=== PATIENT | female | born 1990 | race Caucasian/White ===

== ENCOUNTER 2017-03-08 04:34 | Emergency (ER) | payer OTHER ==
[~2017-03-08] VITALS: Ht 152.4 cm; Wt 55.7 kg
[~2017-03-08 04:34] MED LIST: BCPILLS PO
[2017-03-08 04:37] VITALS: BP 123/85; PULSE 83; TEMP 36.4; Ht 152.4 cm; Wt 55.7 kg
[2017-03-08 04:42] VITALS: O2SAT 99
--- NOTE | 2017-03-08 04:48 | EMERGENCY ROOM VISIT NOTE ---
History Report prepared by Dorota: Dinorah Chen Under the Supervision of: Dr. Avery Seaman M.D. First contact with patient: 04:40 Chief Complaint: THROAT PAIN/INJURY Stated Complaint: THROAT PAIN, COUGH History of Present Illness The patient is a 26 year old female who presents to the Emergency Room with complaints of a persistent, worsening sore throat that began three days ago. She currently rates her discomfort as a 5/10 in severity. The patient states that both her daughter and were recently sick. She states that her sore throat began and today she noticed white patches in the back of her throat. The patient notes increased pain with swallowing. The patient additionally associates a dry cough with her symptoms. She denies any fever, urinary symptoms, abdominal pain, or diarrhea. Source of History: patient Onset: three days ago Position: throat Symptom Intensity: 5/10 Quality: other (sore) Timing: worsening, other (persistent) Modifying Factors (Worsening): other (swallowing ) Associated Symptoms: No abdominal pain, No diarrhea, No fevers, No urinary symptoms Review of Systems See HPI for pertinent positives & negatives. A total of 10 systems reviewed and were otherwise negative. Past Medical & Surgical No active medical problems. Family History No pertinent family history stated. Social History Smoking Status: Never Smoker Marital Status: Housing Status: lives with family Occupation Status: employed Current/Historical Medications Scheduled Amoxicillin (Amoxil), 500 MG PO TID Benzonatate (Tessalon Perles), 1-2 CAP PO Q4 Prednisone (Prednisone), 2 TAB PO DAILY Allergies Coded Allergies: No Known Allergies (Unverified , 03/08/17) Physical Exam Vital Signs Date Time Temp Pulse Resp B/P Pulse Ox O2 Delivery O2 Flow Rate FiO2 03/08/17 04:42 99 Room Air 03/08/17 04:38 99 Room Air 03/08/17 04:37 36.4 83 16 123/85 99 Room Air Physical Exam GENERAL: Patient is well appearing and in no acute distress. HEENT: Bilateral erythematous tonsils, minimally enlarged, white exudate bilaterally. No acute trauma, normocephalic atraumatic, mucous membranes moist , no nasal congestion, no scleral icterus. NECK: No stridor, mild anterior adenopathy, no meningismus, trachea is midline. LUNGS: No dyspnea. Clear to auscultation and equal bilaterally. No wheeze, no rhonchi. HEART: Regular rate and rhythm. No murmurs, rubs, gallops appreciated. EXTREMITIES: Normal motion all extremities, no cyanosis, no edema. NEUROLOGIC: Alert and oriented, no acute motor or sensory deficits, no focal weakness, cranial nerves grossly intact. SKIN: No rash, no jaundice, no diaphoresis. Medical Decision & Procedures Medications Administered Medications (Trade) Dose Ordered Sig/Juanita Route Start Time Stop Time Status Last Admin Dose Admin Benzonatate (Tessalon Perles Cap) 100 mg NOW STAT PO 03/08/17 04:54 03/08/17 04:57 DC 03/08/17 05:11 100 MG Benzonatate (Tessalon Perles Cap) 200 mg NOW STAT PO 03/08/17 04:54 03/08/17 04:57 DC 03/08/17 05:15 200 MG Amoxicillin (Amoxil 250MG Home Pack) 1 homepack UD ONCE PO 03/08/17 05:00 03/08/17 05:01 DC 03/08/17 05:15 1 HOMEPACK Amoxicillin (Amoxil Cap) 500 mg NOW STAT PO 03/08/17 04:54 03/08/17 04:57 DC 03/08/17 05:12 500 MG Prednisone (PredniSONE TAB) 60 mg NOW STAT PO 03/08/17 04:54 03/08/17 04:57 DC 03/08/17 05:11 60 MG Amoxicillin (Amoxil 250MG Home Pack) 1 homepack UD ONCE PO 03/08/17 05:15 03/08/17 05:16 DC 03/08/17 05:15 1 HOMEPACK ED Course 0440: The patient was evaluated in room B3B. A complete history and physical exam was performed. 0449: I reevaluated the patient and she is resting comfortably. I discussed the exam findings with her and I discussed the treatment plan. She verbalized complete understanding and agreement. She is ready for discharge. 0454: Ordered Prednisone 60 mg PO, Amoxicillin 500 mg PO, Benzonatate 200 mg PO , Benzonatate 100 mg PO. 0500: Ordered Amoxicillin 1 homepack PO. 0515: Ordered Amoxicillin 1 homepack PO. Medical Decision Differential: Viral, Tonsillitis, Strep, [place], Peritonsillar Abscess, Retropharyngeal Abscess, Otitis, Pneumonia, Influenza, amongst other pathologies entertained. 26 yr old female with sore throat that has developed in to exudative tonsillitis. No blisters appreciated and no evidence of abscess. Strep is negative. Family with similar sore throat though without exudative. She also has cough with this. Will start some steroids for symptom relief and as doing so will add on Amox, especially given this is holiday weekend and may be difficult to get in with provider/pharmacy. Did discuss likelihood of this being purely viral but she agrees with abx use. Patient denies concerns for mono. Impression Primary Impression: Acute tonsillitis Scribe Attestation The scribe's documentation has been prepared under my direction and personally reviewed by me in its entirety. I confirm that the note above accurately reflects all work, treatment, procedures, and medical decision making performed by me. Departure Information Dispostion Home / Self-Care Prescriptions Benzonatate (Tessalon Perles) 100 Mg Cap 1-2 CAP PO Q4 for 5 Days, #30 CAP Prov: Avery Seaman M.D. 03/08/17 Prednisone (Prednisone) 20 Mg Tab 2 TAB PO DAILY for 4 Days, #8 TAB Prov: Avery Seaman M.D. 03/08/17 Amoxicillin (AMOXIL) 500 Mg Tab 500 MG PO TID for 7 Days, #21 TAB Prov: Avery Seaman M.D. 03/08/17 Forms HOME CARE DOCUMENTATION FORM, IMPORTANT VISIT INFORMATION Patient Instructions ED Tonsillitis, [facility] Problem Qualifiers Primary Impression: Acute tonsillitis Pharyngitis/tonsillitis etiology: unspecified etiology Qualified Codes: J03.90 - Acute tonsillitis, unspecified
[2017-03-08] MEDS ORDERED: AMOXICILLIN 250 MG CAP PO STA (04:54)
[2017-03-08] MEDS ORDERED: BENZONATATE 100MG CAP PO STA ×2 (04:54)
[2017-03-08] MEDS ORDERED: BENZ100C84 PO (04:57)
[2017-03-08] MEDS ORDERED: AMOX500T3 PO (04:57)
[2017-03-08] MEDS ORDERED: PRED20TA PO (04:57)
[2017-03-08] MEDS ORDERED: AMOXICILLIN HOME PACK 250 MG/TAB PO ONE ×2 (05:00→05:15)
[2017-03-08] MEDS ORDERED: EMPTY 8 DRAM VIAL ONE (05:09)
== END 2017-03-08 05:17 | disposition home or self-care (01) ==
LOC: C.EDB 04:34
DX: J03.90 Acute tonsillitis, unspecified (principal)

== ENCOUNTER 2019-04-25 05:31 | Inpatient (IN) ==
--- NOTE | 2019-04-22 11:26 | Anesthesiology Consultation ---
Date of Service April 22, 2019 Assessment & Plan (1) Encounter for pre-operative examination: Family hx pseudocholinesterase deficiency: per patient, as a child she tested "negative" but unable to obtain those records Chart Review Chart Review: Acceptable Risk for Surgery (PENDING LABS AM DOS) and Patient seen in Pre Admission Testing Consults Requested none Teaching & Discussion Pre-Anesthesia Teaching/Discussion Notes: Instructed NPO after midnight before surgery,except medications with 15 cc of water. Medication instructions provided according to the PAT guidelines. ASA ASA2 Proposed Anesthesia Anesthesia Type: Spinal Risk / Benefits Reviewed With: PT / POA / Parent / Guardian, Accepts Plan and Informed Consent Obtained History Surgery Operation Date: 04/25/19 07:30 Proposed Procedures p Section in LD - Lyn Brandon MD, FACOG Height/Weight Height: 5 ft Weight: 64.8 kg Allergies Allergy/AdvReac Type Severity Reaction Status Date / Time No Known Allergies Allergy Unverified 04/15/19 08:48 Medications Home Medications Medication Instructions Recorded Confirmed Last Taken PNV cmb#95-ferrous fumarate-FA 1 tab PO HS 04/15/19 04/15/19 04/14/19 [] cetirizine [Zyrtec] 10 mg PO UD PRN 04/15/19 04/15/19 Unknown Active Medications Generic Name Dose Route Start Last Admin Trade Name Freq PRN Reason Stop Dose Admin Lactated Ringer's 1,000 mls @ 999 mls/hr 04/25/19 09:30 04/25/19 06:00 Lr IV 04/25/19 15:59 999 mls/hr .Q1H1M AZUCENA Administration Past Medical History Medical History Family history of pseudocholinesterase deficiency HX IN FATHER; PATIENT TESTED "NEGATIVE" CHILD (UNABLE TO OBTAIN RECORDS) History of blood transfusion 2013 2/2 HEMORRHAGE Exercise / Class Metabolic Activity II 4-5 Yardwork/Stairs/Walk up hill Past Surgical History Surgical History History of section 2013 C/S- FAILURE TO PROGRESS ([place]) History of wisdom tooth extraction Past Anesthesia History No Hx of Anesthesia Complications and Pseudocholinesterase Deficiency (HX IN FATHER; PATIENT TESTED "NEGATIVE" CHILD) History of PONV No Hx of PONV and Hx of Motion Sickness (REMOTE HX) Social History Smoking Status: Never smoker Do You Dip or Chew Tobacco: No Hx Alcohol Use: No Hx Substance Use: No substance use type: does not use Review of Systems Patient denies chest pain, shortness of breath, dyspnea on exertion, cough, whee zing, palpitations. Physical Exam Vital Signs Last Vital Signs Temp 36.8 C 04/25/19 05:39 Pulse 64 04/25/19 05:37 Resp 20 04/25/19 05:39 BP 126/78 04/25/19 05:37 VITALS BP 97/64 (per patient, typically low to normal BP with systolic in low 100's) P 72 TEMP 98.4 SP02 97%RA RESP 18 PHYSICAL Full neck and c-spine range of motion. Full TMJ range of motion. TMD 4 finger breaths Mallampati Score 1 Dentition: intact Lungs: clear throughout to auscultation Cardiac: regular rate and rhythm, no murmurs noted Spine: normal Carotid arteries: negative bruit Extremities: no edema ENMT Mouth: no dentition abnormality Thyromental Distance: > or= 3.5 Finger Breadths Mallampati Class: II Neck normal visual inspection Respiratory normal respiratory effort Auscultation: lungs clear to auscultation bilaterally Cardiovascular Rate/Rhythm: regular rate and regular rhythm Psychiatric Orientation: alert
--- NOTE | 2019-04-23 11:12 | History & Physical Report ---
Date of Service April 23, 2019 Assessment & Plan (1) Previous section complicating : IUP at 39 weeks with request for repeat section. the risks & the procedure were reviewed with the patient & her questions were answered to her satisfaction Please see the pre-op orders for further direction. History of Present Illness Primary Care Provider: NO PCP Patient is a 28 yo white female EDC 04/30/19 who presents for repeat at a39+ weeks. prior was done for FTP. this has been uncomplicated except for suspected SGA on 20 week anatomy scan but follow up growth scans showed normal growth for the rest of the . GBS (+) blood type O(+). Allergies Allergy/AdvReac Type Severity Reaction Status Date / Time No Known Allergies Allergy Unverified 04/15/19 08:48 Home Medications Home Medications Medication Instructions Recorded Confirmed Type PNV cmb#95-ferrous fumarate-FA 1 tab PO HS 04/15/19 04/15/19 History [] cetirizine [Zyrtec] 10 mg PO UD PRN 04/15/19 04/15/19 History Patient History Medical History Family history of pseudocholinesterase deficiency HX IN FATHER; PATIENT TESTED "NEGATIVE" CHILD (UNABLE TO OBTAIN RECORDS) History of blood transfusion 2013 12/ HEMORRHAGE Surgical History History of section 2013 C/S- FAILURE TO PROGRESS ([place]) History of wisdom tooth extraction Social History Preferred Language: Yi Communication Ability: Effective Real Estate Manager Required: No Beliefs That Will Affect Care: None Current Living Situation: Family Other Information That Helps Us Care for You: No Feels Safe at Home: Yes Smoking Status: Never smoker Do You Dip or Chew Tobacco: No Hx Alcohol Use: No Hx Substance Use: No Review of Systems All systems reviewed & are unremarkable except as noted in HPI & below Physical Exam Constitutional: WD/WN, vitals as above Respiratory: normal respiratory effort, lungs clear to auscultation Cardiovascular: RRR, no murmur, no edema Gastrointestinal (Abdomen): normal bowel sounds, soft, nontender, no hepatosplenomegaly Musculoskeletal: no cyanosis or clubbing, extremities motor strength 5/5 no calf tenderness Genitourinary: OB Exam Abdomen: + heart tones (150 bpm), + vertex and + estimated weight (6-7 pounds) pelvic exam deferred
--- OUTSIDE RECORDS SUMMARY | 2019-04-25 05:36 | External Medical Summary | Continuity of Care Document ---
:1990 Author Name Ligia Griffin, Provider Address Unavailable Unavailable , Care Team Providers Name Role Phone Aleksandr Griffin, Lyn Leonardo Unavailable Wenceslao [email or web address] Unavailable Unavailable Unavailable Unavailable Unavailable Problems Previous delivery affecting , antepartum ( 654.23) (O34.219) Encounter for supervision of normal preg diana in multigravida in third trimester (V22.1) (Z34.83) Encounter for counseling (V65.49) (Z39.1) GBS (group B streptococcus) UTI complicating (646. 60) (O23.40) Allergies and Adverse Reactions No Known Allergies (Allergy) Medications TABS Refills: 0 Procedures History of Section Status: Comp leted History of Oral Surgery Tooth Extraction Status: Completed Immunizations Tdap (Adacel) On: 10-Feb-2019 9:10 Lot #: [id number], [employer] PASTEUR Family History Father No pertinent family history (V49.89) (Z78.9) Status: Active Mother Family history of hypertension (V17.49) (Z82.49) Status: Act khushi Family history of thyroid disease (V18.19) (Z83.49) Status: Active Plan of Treatment Planned Encounters Appointment; Lyn Brandon M.D. Start: 14:30 Request Planned Observations Planned Goals not documented Results No Known Results Results not documented Vital Signs 22-Apr-2019 10:35 Systolic 138 mm[Hg] Diastolic 86 mm[Hg] Weight 142.5 lb Height 61 in BSA Calculated 1.64 m2 BMI Calculated 26.93 kg/m2 11-Apr-2019 8:31 Systolic 112 mm[Hg] Diastolic 74 mm[Hg] Weight 144.4 lb Height 61 in BSA Calculated 1.64 m2 BMI Calculated 27.28 kg/m2 Encounters Appointment; Lyn Brandon M.D. 22-Apr-2019 10:30 Encounter Diagnosis: Problem not documented Appointment; Madeline Prakash M.D. 11-Apr-2019 8:50 Encounter Diagnosis: Problem not documented Appointment; Fátima Krueger M.D. 22-Mar-2019 8:30 Encounter Diagnosis: Problem not documented Appointment; Lyn Brandon M.D. 08-Mar-2019 8:30 Encounter Diagnosis: Problem not documented Appointment; Lyn Brandon M.D. 22-Feb-2019 8:30 Encounter Diagnosis: Problem not documented Appointment; Fátima Krueger M.D. 10-Feb-2019 9:20 Encounter Diagnosis: Problem not documented Appointment; OBGYN SC1, Ultrasound 10-Feb-2019 8:30 Encounter Diagnosis: Problem not documented Appointment; Lyn Brandon M.D. 13-Jan-2019 16:00 Encounter Diagnosis: Problem not documented Appointment; OBGYN SC2, Ultrasound 13-Jan-2019 15:30 Encounter Diagnosis: Problem not documented Appointment; María Kang M.D. 14-Dec-2018 16:20 Encounter Diagnosis: Problem not documented Appointment; OBGYN SC1, Ultrasound 14-Dec-2018 15:30 Encounter Diagnosis: Problem not documented Appointment; Fátima Krueger M.D. 15-Nov-2018 8:20 Encounter Diagnosis: Problem not documented Appointment; Madeline Prakash M.D. 18-Oct-2018 8:30 Encounter Diagnosis: Problem not documented Appointment; OB SC1, Procedure Rm 21-Sep-2018 14:40 Encounter Diagnosis: Problem not documented Appointment; Fátima Krueger M.D. 21-Sep-2018 14:40 Encounter Diagnosis: Problem not documented Appointment; OB SC1, Nursing [facility] 15-Sep-2018 8:45 Encounter Diagnosis: Problem not documented Appointment; Lyn Brandon M.D. 07-Jun-2019 14:30 Encounter Diagnosis: Problem not documented
[2019-04-25] MEDS ORDERED: CITRIC ACID/SODIUM CITRATE 15 ML UDC PO SCH (06:00)
[2019-04-25] MEDS ORDERED: CEFAZOLIN 2,000 MG in SYRINGE 0 ML IV SCH (06:00)
[2019-04-25 06:06] LABS: Basophils # (auto) 0.03 K/uL (0-0.2); Basophils % (auto) 0.3 %; Eosinophils # (auto) 0.11 K/uL (0-0.5); Hematocrit (blood only) 37.8 % (37-47); Hemoglobin 12.8 g/dL (12.0-16.0); Immature Granulocytes # (auto) 0.07 K/uL (0.00-0.02); Immature Granulocytes % (auto) 0.6 %; Lymphocytes # (auto) 2.76 K/uL (1.2-3.4); Lymphocytes % (auto) 24.9 %; Mean Corpuscular Volume 85.9 fL (80-100); Mean Platelet Volume 10.9 fL (7.4-10.4); Neutrophils % (auto) 64.2 %; Platelet Count 218 K/uL (130-400); RDW Coefficient of Variation 14.6 % (11.5-14.5); RDW Standard Deviation 45.6 fL (36.4-46.3); White Blood Count 11.07 K/uL (4.8-10.8)
[2019-04-25 06:07] LABS: Mean Corpuscular Hgb Conc 33.9 g/dL (32-36)
--- NOTE | 2019-04-25 07:18 | History & Physical Bridge Note ---
Date of Service April 25, 2019 History & Physical Bridge Note I have examined the patient, reviewed the History & Physical and in the interval since the performance of the History & Physical I have noted the following changes of clinical significance: no changes noted
[2019-04-25] MEDS ORDERED: fentaNYL citrate 100 MCG/2 ML VIAL ONE (07:39)
[2019-04-25] MEDS ORDERED: MoRPHine SULFATE PF 1 MG/ML 10 ML AMP/VIAL ONE (07:39)
[2019-04-25] MEDS ORDERED: ONDANSETRON INJ 2 MG/ML 2 ML VIAL ONE (08:48)
[2019-04-25] MEDS ORDERED: KETOROLAC 30 MG/ML VIAL ONE (08:48)
[2019-04-25] MEDS ORDERED: OXYTOCIN 10 UNITS/ML VIAL ONE (08:48)
--- NOTE | 2019-04-25 09:07 | Post Operative Brief Note ---
Immediate Post Op Note v1 Date of Surgery April 25, 2019 Pre & Post Diagnosis Operation Date: 04/25/19 07:30 Pre-Op Diagnosis: History of Section; Desires Repeat Post-Op Diagnosis: Same; Delivery of a live female child at 0817 Procedure Operation Date: 04/25/19 07:30 Actual Procedures p Section in LD - Lyn Brandon MD, FACOG Surgeon Lyn Brandon MD, FACOG Silver Solderer Sergio Ramon MD & Nmeesio Cadet PGY1 Estimated Blood Loss 550 Findings Consistent with Post-Op Diagnosis Drains Vernon Catheter
[2019-04-25] MEDS ORDERED: NALOXONE HCL 1 MG in SODIUM CHLORIDE 0.9% 1000ML 1,000 ML IV PRN (09:08)
[2019-04-25] MEDS ORDERED: MoRPHine SULFATE PF 1 MG/ML 10 ML AMP/VIAL INT SPINAL ONE (09:08)
[2019-04-25] MEDS ORDERED: PROMETHAZINE HCL 6.25 MG in SODIUM CHLORIDE 0.9% 50 ML IV PRN (09:08)
[2019-04-25] MEDS ORDERED: METOCLOPRAMIDE HCL 5 MG in SODIUM CHLORIDE 0.9% 50 ML IV PRN (09:08)
[2019-04-25] MEDS ORDERED: ePHEDrine sulfate 50 MG/ML AMP IV PRN (09:08)
[2019-04-25] MEDS ORDERED: NALOXONE HCL 0.4 MG/1 ML VIAL/CARP IV PRN (09:08)
[2019-04-25] MEDS ORDERED: MoRPHine SULFATE 2 MG/ML CARP IV PRN (09:08)
[2019-04-25] MEDS ORDERED: NALOXONE HCL 0.08 MG in SYRINGE 1.8 ML IV PRN (09:08)
[2019-04-25] MEDS ORDERED: MEPERIDINE HCL 25 MG/ML CARP IV PRN (09:08)
[2019-04-25] MEDS ORDERED: HYDROmorphone INJ 0.5 MG/0.5 ML SYR IV PRN (09:08)
[2019-04-25] MEDS ORDERED: ONDANSETRON INJ 2 MG/ML 2 ML VIAL IV PRN ×2 (09:08→10:47)
[2019-04-25] MEDS ORDERED: LACTATED RINGER'S 500 ML IV PRN (09:08)
[2019-04-25] MEDS ORDERED: DiphenhydrAMINE HCL 50 MG/ML VIAL IV PRN (09:08)
--- NOTE | 2019-04-25 09:09 | Anesthesiology Progress Note ---
Date of Service April 25, 2019 Anesthesia Post Procedure Vital Signs Vital Signs: Temp Pulse Resp BP Pulse Ox 04/25/19 09:03 74 100 04/25/19 08:59 65 111/65 04/25/19 08:58 71 99 04/25/19 05:39 36.8 C 20 04/25/19 05:37 64 126/78 Transfer of Care Handoff Completed per policy Notes Mental Status: alert / awake / arousable Nausea / Vomiting: adequately controlled Pain: adequately controlled Airway Patency, RR, SpO2: stable & adequate BP & HR: stable & adequate Hydration State: stable & adequate Neuraxial Anesthesia: was administered and sensory block is resolving Anesthetic Complications: no major complications apparent
[2019-04-25] MEDS ORDERED: SODIUM CHLORIDE 0.9% 1000ML 1,000 ML IV SCH (09:15)
[2019-04-25] MEDS ORDERED: NO NARCOTICS OR SEDATIVES SCH (09:15)
[2019-04-25] MEDS ORDERED: LACTATED RINGER'S 1,000 ML IV SCH (09:30)
[2019-04-25] MEDS: NALBUPHINE HCL INJ 10 MG/ML AMP IV PRN ×2 (09:33→15:09)
[2019-04-25] MEDS: OXYTOCIN 20 UNITS in LACTATED RINGER'S 1,000 ML IV SCH ×2 (09:35→17:24)
--- NOTE | 2019-04-25 10:05 | Operative Report ---
DATE OF OPERATION: 04/25/2019 SURGEON: Lyn Brown MD ASSISTANTS: 1. Cruz Ramon MD 2. Dr. Nemesio Cadet, PGY-1 PREOPERATIVE DIAGNOSES: Intrauterine at 39+ weeks, prior section, requesting repeat section. POSTOPERATIVE DIAGNOSES: Intrauterine at 39+ weeks, prior section, requesting repeat section plus delivery of a viable female , 5 pounds 13 ounces, Apgars 9 and 10. PROCEDURE: Repeat low transverse section. HISTORY: The patient is a 28-year-old 2, para 1-0-0-1 white female, EDC of 04/30/2019, who presented for repeat section. Prior section was done for arrest of descent. She is requesting repeat section. She understands the risks of procedure and is willing to proceed. ANESTHESIA: Subarachnoid block. BLOOD LOSS: 550 mL GROSS FINDINGS: Uterus is gravid and consistent with a term in size. Bilateral ovaries and fallopian tubes are grossly normal. DESCRIPTION OF PROCEDURE: After the patient received adequate subarachnoid block, she was prepped and draped in usual sterile fashion. A low transverse skin incision made through a prior scar and carried to the fascia with the same scalpel. The fascial incision was then extended with Torres scissors. The edges were grasped with Flory clamps and the underlying rectus muscles were bluntly and sharply dissected off the overlying fascia. The rectus muscles were bluntly divided along the midline and the peritoneum was entered bluntly. The bladder was then taken down off the anterior surface of the uterus and placed behind the bladder blade. Low uterine segment was entered transversely and extended bluntly. Membranes were ruptured for clear fluid. The was delivered from the vertex presentation with moderate fundal pressure. There was spontaneous crying and vigorous movement up on delivery. There was a triple nuchal cord, which was reduced before the rest of the infant was delivered. The cord was then clamped and cut and the infant was handed off to Dr. Archer who was in attendance as die casting machine maintainer. The placenta was then expressed intact with a 3-vessel cord. The uterine cavity was explored and found to be free of any placental tissue or membranes. The uterus was then closed in 2 layers in a running locking imbricating fashion with 0 Monocryl. Bleeding site on the left side of the incision was secured with [id number] stitch of 0 Monocryl. The posterior cul-de-sac was irrigated with normal saline. The gutters were explored and found to be free of any fluid or clot. The uterus was placed back inside the uterine cavity. Some bleeding from that left corner of the incision was again secured with another kqyxwe-bn-iweno stitch of 0 Monocryl. At this point, hemostasis was noted to be excellent. The rectus muscles were brought together in the midline with individual stitches of 0 Monocryl. The fascia was closed in a running fashion with 0 Vicryl. After irrigating the adipose layer, the skin edges were reapproximated using a subcuticular stitch of 4-0 Vicryl. The patient tolerated the procedure well and was stable upon arrival in recovery room. I attest to the content of the Intraoperative Record and any orders documented therein. Any exception s are noted below.
[2019-04-25] MEDS ORDERED: BENZOCAINE 20% AER SPR 82.5 GM CAN EXT PRN (10:47)
[2019-04-25] MEDS ORDERED: SUPERCREAM 0.870% 15 GM JAR EXT PRN (10:47)
[2019-04-25] MEDS ORDERED: SENNA 8.6 MG TAB PO PRN (10:47)
[2019-04-25] MEDS ORDERED: HYDROCORTISONE ACETATE 25 MG SUPP PR PRN (10:47)
[2019-04-25] MEDS ORDERED: MAGNESIUM HYDROXIDE SUSP 30 ML UDC PO PRN (10:47)
[2019-04-25] MEDS ORDERED: DIPHTHERIA/TETANUS/PERTUSSIS 0.5 ML SYR/VIAL IM ONE (10:47)
[2019-04-25] MEDS: SIMETHICONE 80 MG CHEW PO SCH ×4 (11:30→21:23)
[2019-04-25] MEDS: PRENATAL VITAMIN 1 TAB PO SCH (11:31)
[2019-04-25] MEDS: KETOROLAC 30 MG/ML VIAL IV PRN ×2 (15:08→20:47)
[2019-04-25] MEDS: DOCUSATE SODIUM 100 MG CAP PO SCH (21:23)
[2019-04-26] MEDS: KETOROLAC 30 MG/ML VIAL IV PRN (03:02)
[2019-04-26] MEDS ORDERED: PROMETHAZINE HCL 25 MG in SODIUM CHLORIDE 0.9% 50 ML IV PRN (03:08)
[2019-04-26] MEDS ORDERED: ZOLPIDEM TARTRATE 5 MG TAB PO PRN (03:08)
[2019-04-26] MEDS ORDERED: DC INTRASPINAL MORPHINE ONE (03:08)
[2019-04-26] MEDS ORDERED: KETOROLAC 30 MG/ML VIAL IV PRN (03:08)
[2019-04-26] MEDS ORDERED: DiphenhydrAMINE HCL 50 MG/ML VIAL IV PRN (03:08)
[2019-04-26] MEDS ORDERED: MEPERIDINE HCL 50 MG/ML CARP IV PRN (03:09)
[2019-04-26 06:31] LABS: Basophils # (auto) 0.02 K/uL (0-0.2); Basophils % (auto) 0.2 %; Eosinophils # (auto) 0.19 K/uL (0-0.5); Eosinophils % (auto) 1.5 %; Hematocrit (blood only) 31.6 % (37-47); Hemoglobin 10.7 g/dL (12.0-16.0); Immature Granulocytes # (auto) 0.06 K/uL (0.00-0.02); Immature Granulocytes % (auto) 0.5 %; Lymphocytes # (auto) 2.03 K/uL (1.2-3.4); Mean Corpuscular Hgb Conc 33.9 g/dL (32-36); Mean Corpuscular Volume 86.6 fL (80-100); Mean Platelet Volume 10.8 fL (7.4-10.4); Monocytes # (auto) 1.09 K/uL (0.11-0.59); Monocytes % (auto) 8.6 %; Neutrophils # (auto) 9.26 K/uL (1.4-6.5); Neutrophils % (auto) 73.2 %; Platelet Count 177 K/uL (130-400); RDW Coefficient of Variation 14.8 % (11.5-14.5); RDW Standard Deviation 46.8 fL (36.4-46.3); Red Blood Count 3.65 M/uL (4.2-5.4); White Blood Count 12.65 K/uL (4.8-10.8)
--- NOTE | 2019-04-26 06:37 | Obstetrical Progress Note ---
Date of Service <Nemesio Cadet MD - Last Filed: 04/26/19 06:37> April 26, 2019 Assessment & Plan <Nemesio Cadet MD - Last Filed: 04/26/19 06:37> (1) delivery delivered: Haylee is a 28yo who presented for repeat c/s at 39+ now POD#1 - GBS+, O+ - Systolic murmur today. Not previously known to patient. - Feels well today. Eating well. Has not voided/ambulated since ramesh removed at 4am. Encourage ambulation as tolerated today. - Pain well controlled with ibuprofen 600mg Q4H PRN, oxycodone/APAP. - Incision site well healing, C/D/I. - Routine postop care - After discharge will have [address] Brown. Subjective <Nemesio Cadet MD - Last Filed: 04/26/19 06:37> Ambulation: limited ambulation (no ambulation yet) Voiding: voiding difficulty (ramesh removed at 4am, no void yet) Passing Gas:: Yes Diet Tolerance:: regular diet Lochia:: Small Feeding Type:: breast feeding Current Pain Level(1-10): 2 Review of Systems Denies fever, chills, sweats Denies shortness of breath, difficulty breathing, chest pain, palpitations, chest pressure. Denies breast pain. Denies dysuria. Denies headache. Physical Exam <Nemesio Cadet MD - Last Filed: 04/26/19 06:37> Vital Signs (Past 24 Hours) Last Vital Signs Temp 36.9 C 04/26/19 04:05 Pulse 101 H 04/26/19 04:05 Resp 18 04/26/19 04:05 BP 100/62 04/26/19 04:05 Pulse Ox 96 04/26/19 04:05 General: Alert, oriented. No acute distress. Cardiac: iii/vi systolic murmur appreciated at ULSB/LLSB. Regular rate and rhythm, no rubs/gallops. Respiratory: Clear to auscultation anterior and posteriorly, no wheezes/rales/rhonchi. No increased work of breathing. Symmetrical chest rise. No respiratory distress. Abdomen: Soft, nontender, nondistended. Bowel sounds present. Surgical incision C/D/I without erythema/discharge/dehiscence Uterus: Uterine fundus firm, palpable 1cm below umbilicus. Lower Extremities: No lower extremity edema or swelling. No deep calf pain. Mayelin's negative bilaterally. <Lyn Brandon MD, FACOG - Last Filed: 04/26/19 07:46> Co-Signing Physician Notes Resident Physician Supervision Note: I interviewed and examined the patient. Discussed with Dr. Nemesio Cadet PGY1 and agree with findings and plan as documented in the note. Any exceptions or clarifications are listed here: [None] Documented By: Lyn Brandon MD, FACOG Resident Activity Tracking <Nemesio Cadet MD - Last Filed: 04/26/19 06:37> Resident Involvement: Resident Care Provided Care Provided: Adult Hospital Medicine
[2019-04-26] MEDS: IBUPROFEN 600 MG TAB PO PRN ×5 (07:37→23:46)
[2019-04-26] MEDS: OXYCODONE/ACETAMINOPHEN 5mg/325mg TAB PO PRN ×5 (07:37→23:47)
[2019-04-26] MEDS: DOCUSATE SODIUM 100 MG CAP PO SCH ×2 (08:38→19:54)
[2019-04-26] MEDS: PRENATAL VITAMIN 1 TAB PO SCH (08:38)
[2019-04-26] MEDS: SIMETHICONE 80 MG CHEW PO SCH ×4 (08:38→19:54)
[2019-04-26] MEDS ORDERED: CETIRIZINE HCL 10 MG TABLET PO PRN (09:00)
[2019-04-26] MEDS ORDERED: BISACODYL 5 MG TABEC PO SCH (20:00)
[2019-04-27] MEDS: OXYCODONE/ACETAMINOPHEN 5mg/325mg TAB PO PRN ×2 (03:21→09:09)
[2019-04-27] MEDS: IBUPROFEN 600 MG TAB PO PRN ×2 (03:21→09:10)
--- NOTE | 2019-04-27 06:41 | Obstetrical Progress Note ---
Date of Service <Nemesio Cadet MD - Last Filed: 04/27/19 06:40> April 27, 2019 Assessment & Plan <Nemesio Cadet MD - Last Filed: 04/27/19 06:40> (1) delivery delivered: Haylee is a 28yo who presented for repeat c/s at 39+ now POD#2 - GBS+, O+ - Systolic murmur continues to be present today. Not previously known to patient. ECHO yesterday was normal, no valvular disease or cardiac wall motion abnormalities. - Feels well today. Eating well. Voiding, ambulating well. - Pain well controlled with ibuprofen 600mg Q4H PRN, o - Incision site well healing, C/D/I. Mild bruising, but wlel healing. - Routine postop care - After discharge will have [address] Brown. Subjective <Nemesio Cadet MD - Last Filed: 04/27/19 06:40> Ambulation: ambulating normally Voiding: no voiding problems Passing Gas:: Yes Diet Tolerance:: regular diet Lochia:: Small Feeding Type:: breast feeding Current Pain Level(1-10): 2 Review of Systems Denies fever, chills, sweats Denies shortness of breath, difficulty breathing, chest pain, palpitations, chest pressure. Denies breast pain. Denies dysuria. Denies headache. Physical Exam <Nemesio Cadet MD - Last Filed: 04/27/19 06:40> Vital Signs (Past 24 Hours) Last Vital Signs Temp 36.5 C 04/26/19 23:45 Pulse 86 04/26/19 23:45 Resp 18 04/26/19 23:45 BP 109/68 04/26/19 23:45 Pulse Ox 98 04/26/19 23:45 General: Alert, oriented. No acute distress. Cardiac: Regular rate and rhythm, iii/vi systolic murmur at LLSB/ULSB. No rubs/gallops. Respiratory: Clear to auscultation anterior and posteriorly, no wheezes/rales/rhonchi. No increased work of breathing. Symmetrical chest rise. No respiratory distress. Abdomen: Soft, nontender, nondistended. Bowel sounds present. Postsurgical incision C/D/I. Mild eccymoses along incisionline, but no signs of fluctuance, dehiscense, erythema, or discharge. Uterus: Uterine fundus firm, palpable 2cm below umbilicus. Lower Extremities: No lower extremity edema or swelling. No deep calf pain. Mayelin's negative bilaterally. <Rick Elias Jr, MD, FACOG - Last Filed: 04/27/19 06:59> Gastrointestinal (Abdomen) Swelling anterior to incision with ecchymosis consistent with hematoma <Rick Elias Jr, MD, FACOG - Last Filed: 04/27/19 06:59> Co-Signing Physician Notes Resident Physician Supervision Note: I was present with [Name of resident] during the history and exam. I discussed the case with the resident and agree with the findings and plan as documented in the note. Any exceptions or clarifications are listed here: Incision with small SQ hematoma. Desires d/c, instructions given, will call with Temp 100.4 Documented By: Rick Elias Jr, MD, FACOG Resident Activity Tracking <Nemesio Cadet MD - Last Filed: 04/27/19 06:40> Resident Involvement: Resident Care Provided Care Provided: Adult Hospital Medicine
[2019-04-27 06:55] LABS: Hematocrit (blood only) 33.8 % (37-47); Hemoglobin 11.3 g/dL (12.0-16.0)
[2019-04-27] MEDS ORDERED: BISACODYL 10 MG SUPP PR PRN (08:44)
[2019-04-27] MEDS: SIMETHICONE 80 MG CHEW PO SCH (09:09)
[2019-04-27] MEDS: DOCUSATE SODIUM 100 MG CAP PO SCH (09:09)
[2019-04-27] MEDS: PRENATAL VITAMIN 1 TAB PO SCH (09:18)
--- NOTE | 2019-04-28 23:33 | Discharge Summary ---
PRINCIPAL DIAGNOSES: Intrauterine at 39 weeks, prior section, requesting repeat section. PRINCIPAL PROCEDURE: Repeat low transverse cervical section. HISTORY: The patient is a 28-year-old 2, para 1-0-0-1 white female with an EDC of 04/30/2019 who presented for repeat section. The section was done without complications. The patient had an uncomplicated postoperative course except for the presence of a heart murmur which had not been noted before. An echocardiogram was obtained and was noted to be normal. The patient remained afebrile throughout her hospital stay. She was eating regular diet on her first postoperative day, ambulating and voiding without difficulty as well. Pain was well controlled with oral pain medications. Hemoglobin on admission was 12.8. Hematocrit 37.8. On the first postoperative day, hemoglobin 10.7 and hematocrit 31.6. On the second postoperative day, hemoglobin 11.3 and hematocrit of 33.8. She is being sent home in good condition with prescriptions for Percocet 1 or 2 tablets p.o. q. 4 hours p.r.n. pain and Motrin 600 mg p.o. q. 4 hours p.r.n. pain. She is to call for temperature of 101 degrees or higher, heavy vaginal bleeding, burning with urination, increased redness or drainage from her incision. She is to be seen in 6 weeks for followup visit.
== END 2019-04-27 11:20 | disposition home or self-care (01) | DRG 788 ==
LOC: 4S1 05:31 → EDSTATUS 08:50 → 4S2 11:38
DX: O34.219 Maternal care for unspecified type scar from previous cesarean delivery; O99.824 Streptococcus B carrier state complicating childbirth; R01.1 Cardiac murmur, unspecified; Z3A.39 39 weeks gestation of pregnancy; Z37.0 Single live birth